=== PATIENT | female | born 1985 | race Caucasian/White ===

== ENCOUNTER 2019-01-15 20:31 | Observation (INO) ==
--- NOTE | 2019-01-15 20:37 | Emergency Department Note ---
Disposition Clinical Impression: Altered mental status Qualifiers: Altered mental status type: unspecified Qualified Code(s): R41.82 - Altered mental status, unspecified Disposition: Admitted As Inpatient Condition: Fair Time of Disposition: 03:14 General Adult HPI - General Stated complaint: stroke problems Time Seen by Provider: 01/15/19 20:33 Source: patient, family, EMS Mode of arrival: EMS Limitations: altered mental status Nursing Notes Reviewed: Yes Vital Signs Reviewed: Yes - History of Present Illness HPI Narrative: 33-year-old female with past medical history of being diagnosed with a "hole in her heart" and having strokelike symptoms approximately one month ago seen at this facility. Patient states she has had right-sided abdominal pain for the last day and a half. She is somewhat somnolent and difficult to arouse but will answer some questions. Family at bedside states that she smoked some marijuana around 1630 tonight, had some dinner around 1800, and then slumped over on the couch around 1830. Family also states that patient was up moving furniture yesterday after being told that she should be taking it easy after her last hos pital admission, and the patient has been more "grumpy" over the last 2 days. Patient is laying on the stretcher, rolling her head back and forth and twitching her feet, she opens her eyes, but will close up very quickly if you look at her. Patient's arm was lifted above her and dropped and she carefully laid it down on top of herself. - Related Data Home Medications Medication Instructions Recorded Confirmed Ranitidine HCl [Acid Extrusion Die Coordinator] 150 mg PO DAILY 12/14/18 12/14/18 Triamterene/HCTZ 37.5/25mg 1 each PO DAILY 12/14/18 12/14/18 [Dyazide] Previous Rx's Medication Instructions Recorded Aspirin 81 mg PO DAILY #30 tab.chew 12/15/18 Cyanocobalamin (B-12) [Vitamin B12] 1,000 mcg PO DAILY #30 tablet 12/15/18 Allergies Allergy/AdvReac Type Severity Reaction Status Date / Time No Known Allergies Allergy Verified 12/14/18 12:02 Limitations: ROS unobtainable due to patients medical condition Past Medical History - Past Medical History Medical history: Reports: hypertension Surgical history: Reports: other Psychiatric history: Reports: no psych history 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 Will open eyes. Will perform some tasks. Head: atraumatic, normocephalic. ENT: No conjunctival injection, no scleral icterus. Neuro: Pt not cooperative enough to perform exam. Pulm: Lungs CTAB A/P. No wheezes, rales, ronchi. Cardio: Tachycardic. Abd: Soft, non-distended. Normoactive bowel sounds. Pt moans when right side of abdomen is palpated. Extremities: Radial pulses 2+ rebeka, dorsalis pedis/posterior tibialis 2+ rebeka. No LE edema. No cyanosis, clubbing. Skin: warm, dry, intact. No rashes. Psych: Unable to assess. Course Course Narrative: Ddx includes but is not limited to: conversion disorder, hypoglycemia, stroke, overdose, polysubstance abuse Workup will include: CBC, BMP, troponin, CXR, Head CT, EKG - Reevaluation(s) Reevaluation #1: Spoke with hospitalist, Dr. Rojas, who is requesting CT of Abd/Pelvis to investigate RUQ pain. Will order. Pt remains at same level of alertness as when she arrived. Can answer questions, but is minimally responsive. Time: 02:07 Vital Signs Temperature 98.3 F 01/15/19 20:35 Pulse Rate 102 01/15/19 20:35 Respiratory Rate 16 01/15/19 20:35 Blood Pressure 156/95 01/15/19 20:35 O2 Sat by Pulse Oximetry 100 01/15/19 20:35 Temperature 98.3 F 01/15/19 20:35 Pulse Rate 71 01/16/19 02:06 Respiratory Rate 16 01/16/19 02:06 Blood Pressure 114/72 01/16/19 02:06 O2 Sat by Pulse Oximetry 100 01/16/19 02:06 Oxygen Delivery Oxygen Delivery Room Air Medical Decision Making - MDM Narrative Medical decision making narrative: Patient was observed in the emergency department for a period of 4 hours. During this time she remained stable. Patient's mental status did not improve, she was still minimally responsive but able to answer questions with repeated stimulus. Patient was discussed with Dr. Rojas requested an Abd/Pelvis CT and while waiting for this, Dr. Vera saw her at the bedside and said to admit her. Pt was taken to CT scan on her way to the floor. Lab work was unrevealing as to cause of her AMS. UDS was positive for methamphetamine and THC. Head CT was negative. CXR was negative. - Medical Records Medical records reviewed: Yes I reviewed the patient's medical records. - Lab Data Lab results reviewed: Yes I reviewed the patient's lab results. Result diagrams: 01/15/19 21:19 01/16/19 00:08 Lab Results 01/15/19 01/15/19 01/15/19 Range/Units 20:32 20:32 20:41 WBC (4.3-11.1) K/mcL RBC (3.82-4.97) M/mcL Hgb (11.5-15.4) g/dL Hct (35.3-44.9) % MCV (83.0-100.0) fL MCH (28.0-33.3) pg MCHC (31.6-35.5) g/dL RDW (11.5-14.5) % Plt Count (140-400) K/mcL MPV (9.4-12.4) fL Sodium (136-145) mEq/L Potassium (3.5-5.1) mEq/L Chloride (98-107) mEq/L Carbon Dioxide (23-29) mEq/L BUN (6-20) mg/dL Creatinine (0.60-1.20) mg/dL Est GFR ( Amer) (> 60) Est GFR (Non-Af Amer) (> 60) BUN/Creatinine Ratio (6-26) Glucose (70-105) mg/dL Calculated Osmolality (280-300) Calcium (8.6-10.3) mg/dL Total Bilirubin (0.3-1.0) mg/dL Direct Bilirubin (0.0-0.2) mg/dL Indirect Bilirubin (0.0-1.2) mg/dL AST (13-39) Units/L ALT (7-52) Units/L Alkaline Phosphatase (34-104) Units/L Ammonia (16-53) mcmol/L Troponin I (< 0.04) ng/mL Serum Total Protein (6.4-8.9) g/dL Albumin (3.5-5.7) g/dL Globulin (2.4-3.5) g/dL Albumin/Globulin Ratio (1.1-2.2) Lipase (11-82) Units/L Urine Color Dark Yellow (Yellow) Urine Clarity Hazy A (Clear) Urine pH 5.5 (5.0-8.0) pH Units Ur Specific [place] > 1.030 H (1.010-1.025) Urine Protein Trace (Neg-Trace) mg/dL Urine Glucose (UA) Normal (Normal) mg/dL Urine Ketones Negative (Negative) mg/dL Urine Blood Negative (Negative) Urine Nitrite Negative (Negative) Urine Bilirubin Negative (Negative) Urine Urobilinogen Normal (Normal) mg/dL Ur Leukocyte Esterase Negative (Negative) Ur Culture Indicated? NO (NO) Urine Test Negative (Negative) Salicylates (15.0-30.0) mg/dL Urine Opiates Screen Negative (Wcrwwy=206) ng/mL Acetaminophen (10-20) mcg/mL Ur Barbiturates Screen Negative (Minjtt=918) ng/mL Ur Phencyclidine Scrn Negative (Cutoff=25) ng/mL Ur Amphetamines Screen Positive H (Lvrinp=1693) ng/mL U Benzodiazepines Scrn Negative (Uqhekw=331) ng/mL Urine Cocaine Screen Negative (Cutoff= 300) ng/mL U Marijuana (THC) Screen Positive H (Cutoff = 50) ng/mL Ur Drug Screen Interp See Below Ethyl Alcohol (Less than 10) mg/dL 01/15/19 01/15/19 01/15/19 Range/Units 21:19 21: 21: WBC 5.8 (4.3-11.1) K/mcL RBC 4.33 (3.82-4.97) M/mcL Hgb 12.1 (11.5-15.4) g/dL Hct 37.7 (35.3-44.9) % MCV 87.1 (83.0-100.0) fL MCH 27.9 L (28.0-33.3) pg MCHC 32.1 (31.6-35.5) g/dL RDW 14.6 H (11.5-14.5) % Plt Count 252 (140-400) K/mcL MPV 9.1 L (9.4-12.4) fL Sodium (136-145) mEq/L Potassium (3.5-5.1) mEq/L Chloride (98-107) mEq/L Carbon Dioxide (23-29) mEq/L BUN (6-20) mg/dL Creatinine (0.60-1.20) mg/dL Est GFR ( Amer) (> 60) Est GFR (Non-Af Amer) (> 60) BUN/Creatinine Ratio (6-26) Glucose (70-105) mg/dL Calculated Osmolality (280-300) Calcium (8.6-10.3) mg/dL Total Bilirubin (0.3-1.0) mg/dL Direct Bilirubin (0.0-0.2) mg/dL Indirect Bilirubin (0.0-1.2) mg/dL AST (13-39) Units/L ALT (7-52) Units/L Alkaline Phosphatase (34-104) Units/L Ammonia 46 (16-53) mcmol/L Troponin I (< 0.04) ng/mL Serum Total Protein (6.4-8.9) g/dL Albumin (3.5-5.7) g/dL Globulin (2.4-3.5) g/dL Albumin/Globulin Ratio (1.1-2.2) Lipase (11-82) Units/L Urine Color (Yellow) Urine Clarity (Clear) Urine pH (5.0-8.0) pH Units Ur Specific [place] (1.010-1.025) Urine Protein (Neg-Trace) mg/dL Urine Glucose (UA) (Normal) mg/dL Urine Ketones (Negative) mg/dL Urine Blood (Negative) Urine Nitrite (Negative) Urine Bilirubin (Negative) Urine Urobilinogen (Normal) mg/dL Ur Leukocyte Esterase (Negative) Ur Culture Indicated? (NO) Urine Test (Negative) Salicylates < 2.5 L (15.0-30.0) mg/dL Urine Opiates Screen (Faupfi=405) ng/mL Acetaminophen 21 H (10-20) mcg/mL Ur Barbiturates Screen (Lbfgsy=184) ng/mL Ur Phencyclidine Scrn (Cutoff=25) ng/mL Ur Amphetamines Screen (Enchne=4656) ng/mL U Benzodiazepines Scrn (Mgvvim=426) ng/mL Urine Cocaine Screen (Cutoff= 300) ng/mL U Marijuana (THC) Screen (Cutoff = 50) ng/mL Ur Drug Screen Interp Ethyl Alcohol < 10 (Less than 10) mg/dL 01/15/19 01/16/19 01/16/19 Range/Units 21:19 00:08 00:08 WBC (4.3-11.1) K/mcL RBC (3.82-4.97) M/mcL Hgb (11.5-15.4) g/dL Hct (35.3-44.9) % MCV (83.0-100.0) fL MCH (28.0-33.3) pg MCHC (31.6-35.5) g/dL RDW (11.5-14.5) % Plt Count (140-400) K/mcL MPV (9.4-12.4) fL Sodium 138 (136-145) mEq/L Potassium 3.4 L (3.5-5.1) mEq/L Chloride 104 (98-107) mEq/L Carbon Dioxide 25 (23-29) mEq/L BUN 20 (6-20) mg/dL Creatinine 0.66 (0.60-1.20) mg/dL Est GFR ( Amer) > 60 (> 60) Est GFR (Non-Af Amer) > 60 (> 60) BUN/Creatinine Ratio 30 H (6-26) Glucose 96 (70-105) mg/dL Calculated Osmolality 288 (280-300) Calcium 9.5 (8.6-10.3) mg/dL Total Bilirubin 0.9 (0.3-1.0) mg/dL Direct Bilirubin 0.2 (0.0-0.2) mg/dL Indirect Bilirubin 0.7 (0.0-1.2) mg/dL AST 23 (13-39) Units/L ALT 12 (7-52) Units/L Alkaline Phosphatase 72 (34-104) Units/L Ammonia (16-53) mcmol/L Troponin I < 0.03 (< 0.04) ng/mL Serum Total Protein 7.2 (6.4-8.9) g/dL Albumin 4.5 (3.5-5.7) g/dL Globulin 2.7 (2.4-3.5) g/dL Albumin/Globulin Ratio 1.7 (1.1-2.2) Lipase 108 H (11-82) Units/L Urine Color (Yellow) Urine Clarity (Clear) Urine pH (5.0-8.0) pH Units Ur Specific [place] (1.010-1.025) Urine Protein (Neg-Trace) mg/dL Urine Glucose (UA) (Normal) mg/dL Urine Ketones (Negative) mg/dL Urine Blood (Negative) Urine Nitrite (Negative) Urine Bilirubin (Negative) Urine Urobilinogen (Normal) mg/dL Ur Leukocyte Esterase (Negative) Ur Culture Indicated? (NO) Urine Test (Negative) Salicylates (15.0-30.0) mg/dL Urine Opiates Screen (Obhapp=892) ng/mL Acetaminophen < 10 L (10-20) mcg/mL Ur Barbiturates Screen (Aaueva=422) ng/mL Ur Phencyclidine Scrn (Cutoff=25) ng/mL Ur Amphetamines Screen (Grwmog=4031) ng/mL U Benzodiazepines Scrn (Stbphi=619) ng/mL Urine Cocaine Screen (Cutoff= 300) ng/mL U Marijuana (THC) Screen (Cutoff = 50) ng/mL Ur Drug Screen Interp Ethyl Alcohol (Less than 10) mg/dL - Radiology Data Radiology results reviewed: Yes I reviewed the patient's radiology results. Chest X-Ray 01/15/19 20:34 IMPRESSION: No acute cardiopulmonary disease. D/ / Home Will MD / Home Will MD Interpreting Provider: Home Will MD Head CT 01/15/19 20:34 IMPRESSION: No acute intracranial abnormality. D/ / Keshawn Siegel / Keshawn Siegel Interpreting Provider: Keshawn Siegel - EKG Data EKG #1 EKG attestation: Yes I reviewed and interpreted this EKG. EKG results narrative: HR 103, rhythm sinus tachycardia, axis normal. [place] 134, QRS 97, QTc 473. No clinically significant ST elevation or depression. LVH. No brugada. No WPW.
--- NOTE | 2019-01-15 20:40 | Emergency Department Note ---
Disposition Clinical Impression: Right upper quadrant abdominal pain Altered mental status Qualifiers: Altered mental status type: unspecified Qualified Code(s): R41.82 - Altered mental status, unspecified Disposition: Admitted As Inpatient Condition: Fair General Adult HPI - General Stated complaint: stroke problems Time Seen by Provider: 01/15/19 20:33 Nursing Notes Reviewed: Yes Vital Signs Reviewed: Yes - Related Data Home Medications Medication Instructions Recorded Confirmed Ranitidine HCl [Acid Relief Cook] 150 mg PO DAILY 12/14/18 12/14/18 Triamterene/HCTZ 37.5/25mg 1 each PO DAILY 12/14/18 12/14/18 [Dyazide] Previous Rx's Medication Instructions Recorded Aspirin 81 mg PO DAILY #30 tab.chew 12/15/18 Cyanocobalamin (B-12) [Vitamin B12] 1,000 mcg PO DAILY #30 tablet 12/15/18 Allergies Allergy/AdvReac Type Severity Reaction Status Date / Time No Known Allergies Allergy Verified 12/14/18 12:02 Past Medical History - Past Medical History Medical history: Reports: hypertension Surgical history: Reports: other Psychiatric history: Reports: no psych history 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 - Social History Smoking Status: Never smoker Smokeless Tobacco Status: No Alcohol use: Reports: none Drug use: Reports: marijuana Course Vital Signs Temperature 98.3 F 01/15/19 20:35 Pulse Rate 102 01/15/19 20:35 Respiratory Rate 16 01/15/19 20:35 Blood Pressure 156/95 01/15/19 20:35 O2 Sat by Pulse Oximetry 100 01/15/19 20:35 Temperature 98.3 F 01/15/19 20:35 Pulse Rate 71 01/16/19 02:06 Respiratory Rate 16 01/16/19 02:06 Blood Pressure 114/72 01/16/19 02:06 O2 Sat by Pulse Oximetry 100 01/16/19 02:06 Oxygen Delivery Oxygen Delivery Room Air Medical Decision Making - Medical Records Medical records reviewed: Yes I reviewed the patient's medical records. - Lab Data Lab results reviewed: Yes I reviewed the patient's lab results. Result diagrams: 01/15/19 21:19 01/16/19 00:08 Lab Results 01/15/19 01/15/19 01/15/19 Range/Units 20:32 20:32 20:41 WBC (4.3-11.1) K/mcL RBC (3.82-4.97) M/mcL Hgb (11.5-15.4) g/dL Hct (35.3-44.9) % MCV (83.0-100.0) fL MCH (28.0-33.3) pg MCHC (31.6-35.5) g/dL RDW (11.5-14.5) % Plt Count (140-400) K/mcL MPV (9.4-12.4) fL Sodium (136-145) mEq/L Potassium (3.5-5.1) mEq/L Chloride (98-107) mEq/L Carbon Dioxide (23-29) mEq/L BUN (6-20) mg/dL Creatinine (0.60-1.20) mg/dL Est GFR ( Amer) (> 60) Est GFR (Non-Af Amer) (> 60) BUN/Creatinine Ratio (6-26) Glucose (70-105) mg/dL Calculated Osmolality (280-300) Calcium (8.6-10.3) mg/dL Total Bilirubin (0.3-1.0) mg/dL Direct Bilirubin (0.0-0.2) mg/dL Indirect Bilirubin (0.0-1.2) mg/dL AST (13-39) Units/L ALT (7-52) Units/L Alkaline Phosphatase (34-104) Units/L Ammonia (16-53) mcmol/L Troponin I (< 0.04) ng/mL Serum Total Protein (6.4-8.9) g/dL Albumin (3.5-5.7) g/dL Globulin (2.4-3.5) g/dL Albumin/Globulin Ratio (1.1-2.2) Lipase (11-82) Units/L Urine Color Dark Yellow (Yellow) Urine Clarity Hazy A (Clear) Urine pH 5.5 (5.0-8.0) pH Units Ur Specific [place] > 1.030 H (1.010-1.025) Urine Protein Trace (Neg-Trace) mg/dL Urine Glucose (UA) Normal (Normal) mg/dL Urine Ketones Negative (Negative) mg/dL Urine Blood Negative (Negative) Urine Nitrite Negative (Negative) Urine Bilirubin Negative (Negative) Urine Urobilinogen Normal (Normal) mg/dL Ur Leukocyte Esterase Negative (Negative) Ur Culture Indicated? NO (NO) Urine Test Negative (Negative) Salicylates (15.0-30.0) mg/dL Urine Opiates Screen Negative (Vczncg=796) ng/mL Acetaminophen (10-20) mcg/mL Ur Barbiturates Screen Negative (Ybcqqo=806) ng/mL Ur Phencyclidine Scrn Negative (Cutoff=25) ng/mL Ur Amphetamines Screen Positive H (Egtddo=7318) ng/mL U Benzodiazepines Scrn Negative (Npzdun=054) ng/mL Urine Cocaine Screen Negative (Cutoff= 300) ng/mL U Marijuana (THC) Screen Positive H (Cutoff = 50) ng/mL Ur Drug Screen Interp See Below Ethyl Alcohol (Less than 10) mg/dL 01/15/19 01/15/19 01/15/19 Range/Units 21:19 21:19 21: WBC 5.8 (4.3-11.1) K/mcL RBC 4.33 (3.82-4.97) M/mcL Hgb 12.1 (11.5-15.4) g/dL Hct 37.7 (35.3-44.9) % MCV 87.1 (83.0-100.0) fL MCH 27.9 L (28.0-33.3) pg MCHC 32.1 (31.6-35.5) g/dL RDW 14.6 H (11.5-14.5) % Plt Count 252 (140-400) K/mcL MPV 9.1 L (9.4-12.4) fL Sodium (136-145) mEq/L Potassium (3.5-5.1) mEq/L Chloride (98-107) mEq/L Carbon Dioxide (23-29) mEq/L BUN (6-20) mg/dL Creatinine (0.60-1.20) mg/dL Est GFR ( Amer) (> 60) Est GFR (Non-Af Amer) (> 60) BUN/Creatinine Ratio (6-26) Glucose (70-105) mg/dL Calculated Osmolality (280-300) Calcium (8.6-10.3) mg/dL Total Bilirubin (0.3-1.0) mg/dL Direct Bilirubin (0.0-0.2) mg/dL Indirect Bilirubin (0.0-1.2) mg/dL AST (13-39) Units/L ALT (7-52) Units/L Alkaline Phosphatase (34-104) Units/L Ammonia 46 (16-53) mcmol/L Troponin I (< 0.04) ng/mL Serum Total Protein (6.4-8.9) g/dL Albumin (3.5-5.7) g/dL Globulin (2.4-3.5) g/dL Albumin/Globulin Ratio (1.1-2.2) Lipase (11-82) Units/L Urine Color (Yellow) Urine Clarity (Clear) Urine pH (5.0-8.0) pH Units Ur Specific [place] (1.010-1.025) Urine Protein (Neg-Trace) mg/dL Urine Glucose (UA) (Normal) mg/dL Urine Ketones (Negative) mg/dL Urine Blood (Negative) Urine Nitrite (Negative) Urine Bilirubin (Negative) Urine Urobilinogen (Normal) mg/dL Ur Leukocyte Esterase (Negative) Ur Culture Indicated? (NO) Urine Test (Negative) Salicylates < 2.5 L (15.0-30.0) mg/dL Urine Opiates Screen (Xdxffu=619) ng/mL Acetaminophen 21 H (10-20) mcg/mL Ur Barbiturates Screen (Qyoxev=834) ng/mL Ur Phencyclidine Scrn (Cutoff=25) ng/mL Ur Amphetamines Screen (Qkewbb=3768) ng/mL U Benzodiazepines Scrn (Tzukkb=281) ng/mL Urine Cocaine Screen (Cutoff= 300) ng/mL U Marijuana (THC) Screen (Cutoff = 50) ng/mL Ur Drug Screen Interp Ethyl Alcohol < 10 (Less than 10) mg/dL 01/15/19 01/16/19 01/16/19 Range/Units 21:19 00:08 00:08 WBC (4.3-11.1) K/mcL RBC (3.82-4.97) M/mcL Hgb (11.5-15.4) g/dL Hct (35.3-44.9) % MCV (83.0-100.0) fL MCH (28.0-33.3) pg MCHC (31.6-35.5) g/dL RDW (11.5-14.5) % Plt Count (140-400) K/mcL MPV (9.4-12.4) fL Sodium 138 (136-145) mEq/L Potassium 3.4 L (3.5-5.1) mEq/L Chloride 104 (98-107) mEq/L Carbon Dioxide 25 (23-29) mEq/L BUN 20 (6-20) mg/dL Creatinine 0.66 (0.60-1.20) mg/dL Est GFR ( Amer) > 60 (> 60) Est GFR (Non-Af Amer) > 60 (> 60) BUN/Creatinine Ratio 30 H (6-26) Glucose 96 (70-105) mg/dL Calculated Osmolality 288 (280-300) Calcium 9.5 (8.6-10.3) mg/dL Total Bilirubin 0.9 (0.3-1.0) mg/dL Direct Bilirubin 0.2 (0.0-0.2) mg/dL Indirect Bilirubin 0.7 (0.0-1.2) mg/dL AST 23 (13-39) Units/L ALT 12 (7-52) Units/L Alkaline Phosphatase 72 (34-104) Units/L Ammonia (16-53) mcmol/L Troponin I < 0.03 (< 0.04) ng/mL Serum Total Protein 7.2 (6.4-8.9) g/dL Albumin 4.5 (3.5-5.7) g/dL Globulin 2.7 (2.4-3.5) g/dL Albumin/Globulin Ratio 1.7 (1.1-2.2) Lipase 108 H (11-82) Units/L Urine Color (Yellow) Urine Clarity (Clear) Urine pH (5.0-8.0) pH Units Ur Specific [place] (1.010-1.025) Urine Protein (Neg-Trace) mg/dL Urine Glucose (UA) (Normal) mg/dL Urine Ketones (Negative) mg/dL Urine Blood (Negative) Urine Nitrite (Negative) Urine Bilirubin (Negative) Urine Urobilinogen (Normal) mg/dL Ur Leukocyte Esterase (Negative) Ur Culture Indicated? (NO) Urine Test (Negative) Salicylates (15.0-30.0) mg/dL Urine Opiates Screen (Oazfpw=118) ng/mL Acetaminophen < 10 L (10-20) mcg/mL Ur Barbiturates Screen (Nrziej=409) ng/mL Ur Phencyclidine Scrn (Cutoff=25) ng/mL Ur Amphetamines Screen (Wsgspp=9432) ng/mL U Benzodiazepines Scrn (Iagrsn=110) ng/mL Urine Cocaine Screen (Cutoff= 300) ng/mL U Marijuana (THC) Screen (Cutoff = 50) ng/mL Ur Drug Screen Interp Ethyl Alcohol (Less than 10) mg/dL - Radiology Data Radiology results reviewed: Yes I reviewed the patient's radiology results. Chest X-Ray 01/15/19 20:34 IMPRESSION: No acute cardiopulmonary disease. D/ / Home Will MD / Home Will MD Interpreting Provider: Home Will MD Head CT 01/15/19 20:34 IMPRESSION: No acute intracranial abnormality. D/ / Keshawn Siegel / Keshawn Siegel Interpreting Provider: Keshawn Siegel - EKG Data EKG #1 EKG attestation: Yes I reviewed and interpreted this EKG. EKG results narrative: EKG shows a sinus tachycardia with ventricular rate of 103. Probable left atrial enlargement. LVH. No significant ST segment elevation or depression. No ectopy. Attestation Statement - Attestation Attestation: I, Franklin Hale MD, personally evaluated this patient and discussed their management with the resident physician. I reviewed the resident's note and agree with the documented findings, medical decision making, and plan of care. 33-year-old female presents to the emergency department by EMS for complaint of right upper quadrant abdominal pain as well as altered mental status. The abdominal pain started yesterday. Boyfriend reports that since yesterday she has been "grumpy" and irritable. He states that she recently had a stroke and was found to have a hole in her heart at [facility]. She is not supposed to do any strenuous activity but he states that she has been moving furniture around and very active and hyper. She does have a history of drug abuse. She admits to using marijuana today. Boyfriend unsure if she has used anything else. He states that about 6 PM today he gave her some Tylenol because she complained of this right side pain. About a half hour later he reports that she was sitting on the couch and she just slumped over and became less responsive. On arrival here the patient responds to verbal stimuli. She does answer some questions. She is holding her right upper quadrant and complains of pain in this area. She seems to be unresponsive at times however while lying on the EMS stretcher and they were moving her over to the bed she would open her eyes widely and look around and then close her eyes quickly. On examination patient is a well-developed obese female in no acute distress. She is altered but responds to verbal stimuli. No cyanosis or diaphoresis. Breath sounds are clear and equal bilaterally. Heart regular with a mild tachycardia. Abdomen soft with normal bowel sounds. Right upper quadrant tenderness on palpation. EKG shows a sinus tachycardia with ventricular rate of 103. Probable left atrial enlargement. LVH. No significant ST segment elevation or depression. No ectopy. Chest x-ray negative. Head CT negative. Labs reviewed. Patient observed here in the emergency department for several hours and remains altered. The hospitalist, Dr. Rojas, was consulted and accepted admission of the patient. I reviewed the residents documentation and agree with the residents assessment and plan of care. I have personally had face to face time with the patient. I personally supervised and was present for the john/critical portions of the following procedures completed by the resident: EKG interpretation.
[2019-01-15 21:10] LABS: Amphetamine Screen,Urine Positive ng/mL (Cutoff=1000); Barbiturate Screen,Urine Negative ng/mL (Cutoff=200); Benzodiazepines Screen,Urine Negative ng/mL (Cutoff=200); Cannabinoid Screen,Urine Positive ng/mL (Cutoff = 50); Cocaine Screen,Urine Negative ng/mL (Cutoff= 300); Opiate Screen,Urine Negative ng/mL (Cutoff=300); Phencyclidine Screen,Urine Negative ng/mL (Cutoff=25)
[2019-01-15 21:35] LABS: Hematocrit 37.7 % (35.3-44.9); Hemoglobin 12.1 g/dL (11.5-15.4); Mean Corpuscular HGB Conc 32.1 g/dL (31.6-35.5); Mean Corpuscular Hemoglobin 27.9 pg (28.0-33.3); Mean Corpuscular Volume 87.1 fL (83.0-100.0); Mean Platelet Volume 9.1 fL (9.4-12.4); Platelet Count 252 K/mcL (140-400); Red Blood Count 4.33 M/mcL (3.82-4.97); Red Cell Distribution Width 14.6 % (11.5-14.5)
[2019-01-15 21:53] LABS: Acetaminophen 21 mcg/mL (10-20); Ethanol < 10 mg/dL (Less than 10); Salicylate < 2.5 mg/dL (15.0-30.0)
[2019-01-15 21:54] LABS: Albumin 4.5 g/dL (3.5-5.7); Albumin/Globulin Ratio 1.7 (1.1-2.2); Bilirubin,Direct 0.2 mg/dL (0.0-0.2); Bilirubin,Indirect 0.7 mg/dL (0.0-1.2); Bilirubin,Total 0.9 mg/dL (0.3-1.0); Globulin 2.7 g/dL (2.4-3.5); Total Protein 7.2 g/dL (6.4-8.9)
[2019-01-15 22:37] LABS: Bilirubin,Urine Negative (Negative); Blood,Urine Negative (Negative); Color,Urine Dark Yellow (Yellow); Glucose,Urine (UA) Normal (Normal); Ketones,Urine Negative (Negative); Leukocyte Esterase,Urine Negative (Negative); Nitrite,Urine Negative (Negative); PH,Urine 5.5 pH Units (5.0-8.0); Protein,Urine Trace mg/dL (Neg-Trace); Specific Gravity,Urine > 1.030 (1.010-1.025); Urobilinogen,Urine Normal (Normal)
[2019-01-15 22:40] LABS: Clarity,Urine Hazy (Clear)
[2019-01-16 01:37] LABS: BUN/Creatinine Ratio 30 (6-26); Blood Urea Nitrogen 20 mg/dL (6-20); Calcium 9.5 mg/dL (8.6-10.3); Carbon Dioxide 25 mEq/L (23-29); Chloride 104 mEq/L (98-107); Glucose 96 mg/dL (70-105); Osmolality,Calculated 288 (280-300); Potassium 3.4 mEq/L (3.5-5.1); Sodium 138 mEq/L (136-145); Troponin I < 0.03 ng/mL (< 0.04); eGFR For Non-African Americans > 60 (> 60)
[2019-01-16] MEDS ORDERED: Isovue-370 500 ML BOTTLE IVP ONE (02:07)
[2019-01-16] MEDS ORDERED: Naloxone 0.4 MG/ML INJ IVP PRN (02:43)
[2019-01-16] MEDS ORDERED: Ondansetron 4 MG/2 ML VIAL IVP PRN (02:43)
--- NOTE | 2019-01-16 03:00 | Internal Med History&Physical ---
Date of Encounter: 01/16/19 Time of Encounter: 02:30 Internal Medicine - H&P: HPI Chief complaint: abdominal pain; overdose Admitted From: Emergency Dept Plans for Post Hospital Care: Home History of present illness: Ms. Gallo is a 33 year old female who presents to the ER by squad with complaints of abdominal pain. However, she was sleepy and minimally responsive upon arrival by squ. Reportedly, family members stated that she slumped over at home earlier this evening after dinner. She had been complaining of a bdominal pain for quite some time. Reportedly, according to her boyfriend, patient had been using marijuana regularly. Her last use of marijuana is unknown. There was concern that she might have ingested some other drug unintentionally. She underwent imaging of her head which was negative. Routine labs were unremarkable but urine toxicity screen was positive for amphetamines and marijuana. Reportedly, her boyfriend did give her 4 Tylenol pills earlier today for concerns of abdominal pain. She was observed in the ER for several hours and remained somnolent. She therefore is admitted to hospitalist service for observation and further monitoring. Upon my assessment of the patient in the ER, she is somnolent but arousable to verbal command. When I asked her why she came to ER, she claimed she was having abdominal pain. She would then drift off to sleep. I continued to ask her, wa ke her up, and questioned her. She repeatedly answered "abdominal pain" and would then drift off to sleep. No further history could be obtained from patient. Of note, during the exam, I noted her pupils to be about 3-4 mm and reactive. Furthermore, she had no sign of abdominal pain on my exam. All history was obtained from my discussions with the ER staff, old records, nursing report, and very limited history obtained from patient as detailed above. No family members were present at the time of my assessment. Past Med Surg Social Fam HX - Past Medical History Source: old records reviewed Medical history: CVA, hypertension Psychiatric history: no psych history - Past Surgical History Surgical History: other Additional surgical history: tubal ligation, upper gi - Social History Smoking Status: Never smoker Smokeless Tobacco Status: No Alcohol use: none Drug use: marijuana - Family History Mother Adopted: No Family Member Ethnicity: Non- Living Status: Still Living Hx Family Cardiac Disorders: Yes (CHF, High BP) Hx Family Cancer: Yes (Cervical) Hx Family Neurologic Disorders: Yes (CVA) Mother Maternal Hx Family Cardiac Disorders: Yes (CABG) Internal Medicine - H&P: Meds Ranitidine HCl [Acid Plant Facilities Technician] 150 mg PO DAILY 12/14/18 [History] Triamterene/HCTZ 37.5/25mg [Dyazide] 1 each PO DAILY 12/14/18 [History] Aspirin 81 mg PO DAILY #30 tab.chew 12/15/18 [Rx] Cyanocobalamin (B-12) [Vitamin B12] 1,000 mcg PO DAILY #30 tablet 12/15/18 [Rx] Allergy/AdvReac Type Severity Reaction Status Date / Time No Known Allergies Allergy Verified 12/14/18 12:02 ROS unobtainable: due to mental status - Constitutional Vitals: Temp Pulse Resp BP Pulse Ox 98.3 F 71 16 114/72 100 01/15/19 20:35 01/16/19 02:06 01/16/19 02:06 01/16/19 02:06 01/16/19 02:06 General appearance: Present: A&O X 0 Exam: somnolent but arousable easily to verbal command; moves all four extremities; drifts right back to sleep; protecting airway - Head Head exam: Present: atraumatic, normal inspection - Eye Eye exam: Present: PERRL. Absent: scleral icterus - ENT ENT exam: Present: mucous membranes dry, normal exam, normal oropharynx - Neck Neck exam general surgery: Present: full ROM, supple, trachea midline. Absent: lymphadenopathy, tenderness, nuchal rigidity, thyromegaly - Respiratory Respiratory exam: Present: CTAB. Absent: chest wall tenderness, rales, respiratory distress, rhonchi, wheezes - Cardiovascular Cardiovascular exam: Present: distant heart sounds, RRR, +S1, +S2. Absent: diastolic murmur, systolic murmur - GI/Abdominal GI/Abdominal exam: Present: normal bowel sounds, soft. Absent: guarding, hepatomegaly, mass, rebound, splenomegaly, tenderness - Extremities Exam Extremities exam: Present: full ROM, warm, radial pulses palpable and s ymmetrical. Absent: calf tenderness, pedal edema, tenderness - Neurological Exam Neurological exam: Present: altered Additional comments: somnolent, arousable; moves all 4 extremities purposely; unable to perform full assessment due to somnolence - Skin Skin exam: Present: dry, intact, warm Internal Med - H&P Results - Labs CBC & Chem 7: 01/15/19 21:19 01/16/19 00:08 Labs: Short CBC 01/15/19 Range/Units 21:19 WBC 5.8 (4.3-11.1) K/mcL Hgb 12.1 (11.5-15.4) g/dL Hct 37.7 (35.3-44.9) % Plt Count 252 (140-400) K/mcL BMP 01/16/19 00:08 Sodium 138 Potassium 3.4 L Chloride 104 Carbon Dioxide 25 BUN 20 Creatinine 0.66 Glucose 96 Calcium 9.5 Cardiac Enzymes 01/16/19 Range/Units 00:08 Troponin I < 0.03 (< 0.04) ng/mL Liver Function 01/15/19 Range/Units 21:19 Total Bilirubin 0.9 (0.3-1.0) mg/dL Direct Bilirubin 0.2 (0.0-0.2) mg/dL AST 23 (13-39) Units/L ALT 12 (7-52) Units/L Alkaline Phosphatase 72 (34-104) Units/L Albumin 4.5 (3.5-5.7) g/dL Urine 01/15/19 Range/Units 20:32 Urine Color Dark Yellow (Yellow) Urine Clarity Hazy A (Clear) Urine pH 5.5 (5.0-8.0) pH Units Ur Specific Billingsley > 1.030 H (1.010-1.025) Urine Protein Trace (Neg-Trace) mg/dL Urine Glucose (UA) Normal (Normal) mg/dL - Impressions ITS Impressions Chest X-Ray 01/15/19 20:34 IMPRESSION: No acute cardiopulmonary disease. D/ / Home Will MD / Home Will MD Interpreting Provider: Home Will MD Head CT 01/15/19 20:34 IMPRESSION: No acute intracranial abnormality. D/ / Keshawn Siegel / Keshawn Siegel Interpreting Provider: Keshawn Siegel - Assessment and Plan (1) Polysubstance abuse Current Visit: Yes Status: Acute Assessment and plan: 1. Will monitor on telemetry and pulse oximetry. 2. Will continue neurochecks and monitor clinically. 3. Somnolence likely due to polysubstance abuse. (2) Altered mental status Current Visit: Yes Status: Acute Assessment and plan: 1. Likley due to polysubstance abuse. 2. Monitor neurologic status frequently. 3. Avoid sedating medications. 4. If no further improvement, consider proceeding with MRI brain. Patient had similar presentation last month. MRI and neurology consultation were both negative. Qualifiers: Altered mental status type: unspecified Qualified Code(s): R41.82 - Altered mental status, unspecified (3) Right upper quadrant abdominal pain Current Visit: Yes Status: Suspected Assessment and plan: 1. Abdominal exam is benign on my exam. 2. Will trend her labs and monitor clinically. 3. Follow up on abdominal CT from ER. (4) DVT prophylaxis Current Visit: Yes Status: Acute Assessment and plan: 1. Heparin SQ.
[2019-01-16] MEDS: 0.9 % Sodium Chloride w KCl 20 MEQ/1,000 ML MLS IVC SCH ×2 (04:37→15:37)
[2019-01-16] MEDS: Pantoprazole 40 MG VIAL IVP SCH ×2 (04:49→18:42)
[2019-01-16 05:26] LABS: Basophils % 1.1 %; Eosinophils # 0.1 K/mcL (0.0-0.6); Eosinophils % 3.2 %; Hematocrit 42.3 % (35.3-44.9); Hemoglobin 13.4 g/dL (11.5-15.4); Immature Granulocytes % 0.3 % (0-4); Lymphocytes # 1.6 K/mcL (0.6-4.6); Lymphocytes % 43.9 %; Mean Corpuscular HGB Conc 31.7 g/dL (31.6-35.5); Mean Corpuscular Volume 88.5 fL (83.0-100.0); Monocytes # 0.3 K/mcL (0.0-1.3); Monocytes % 7.8 %; Neutrophils # 1.6 K/mcL (1.6-8.9); Platelet Count 231 K/mcL (140-400); Red Blood Count 4.78 M/mcL (3.82-4.97); Red Cell Distribution Width 14.9 % (11.5-14.5); Segmented Neutrophils % 43.7 %
[2019-01-16 05:30] LABS: INR 1.1; Prothrombin Time 12.4 Seconds (9.4-12.1)
[2019-01-16 05:33] LABS: Activated Partial Thrombo Time 32.1 Seconds (26.0-36.0)
[2019-01-16 05:59] LABS: Alanine Aminotransferase 14 Units/L (7-52); Albumin 4.9 g/dL (3.5-5.7); Albumin/Globulin Ratio 1.5 (1.1-2.2); Alkaline Phosphatase 82 Units/L (34-104); Amylase 47 Units/L (29-103); Aspartate Amino Transferase 25 Units/L (13-39); BUN/Creatinine Ratio 26 (6-26); Bilirubin,Total 1.3 mg/dL (0.3-1.0); Blood Urea Nitrogen 18 mg/dL (6-20); Calcium 10.4 mg/dL (8.6-10.3); Carbon Dioxide 28 mEq/L (23-29); Chloride 102 mEq/L (98-107); Chol/HDL Ratio 4.4 (0-4.9); Cholesterol 200 mg/dL (< 200); Globulin 3.3 g/dL (2.4-3.5); Glucose 83 mg/dL (70-105); HDL Cholesterol 45 mg/dL (40-59); LDL Cholesterol,Calculated 140 mg/dL (0-99); Lipase 49 Units/L (11-82); Osmolality,Calculated 289 (280-300); Phosphorous 3.3 mg/dL (2.7-4.5); Potassium 3.3 mEq/L (3.5-5.1); Sodium 139 mEq/L (136-145); Total Protein 8.2 g/dL (6.4-8.9); Triglycerides 77 mg/dL (< 150); eGFR For Non-African Americans > 60 (> 60)
[2019-01-16 06:00] LABS: Magnesium 2.1 mg/dL (1.6-2.6)
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
[2019-01-16] MEDS ORDERED: Ketorolac 30 MG/ML VIAL IM PRN (14:16)
[2019-01-16] MEDS: Ketorolac 30 MG/ML VIAL IVP PRN (15:36)
[2019-01-17] MEDS: Ketorolac 30 MG/ML VIAL IVP PRN ×2 (00:04→10:01)
[2019-01-17] MEDS: Pantoprazole 40 MG VIAL IVP SCH ×2 (05:40→17:35)
[2019-01-17 05:59] LABS: Basophils % 0.9 %; Eosinophils # 0.1 K/mcL (0.0-0.6); Eosinophils % 3.5 %; Hemoglobin 11.3 g/dL (11.5-15.4); Immature Granulocytes % 0.3 % (0-4); Lymphocytes # 1.7 K/mcL (0.6-4.6); Lymphocytes % 48.4 %; Mean Corpuscular HGB Conc 31.4 g/dL (31.6-35.5); Mean Corpuscular Hemoglobin 28.2 pg (28.0-33.3); Mean Corpuscular Volume 89.8 fL (83.0-100.0); Mean Platelet Volume 9.5 fL (9.4-12.4); Monocytes # 0.3 K/mcL (0.0-1.3); Monocytes % 9.8 %; Neutrophils # 1.3 K/mcL (1.6-8.9); Platelet Count 179 K/mcL (140-400); Red Blood Count 4.01 M/mcL (3.82-4.97); Red Cell Distribution Width 14.6 % (11.5-14.5); Segmented Neutrophils % 37.1 %
[2019-01-17 06:02] LABS: INR 1.1; Prothrombin Time 12.4 Seconds (9.4-12.1)
[2019-01-17 06:23] LABS: Albumin 3.5 g/dL (3.5-5.7); Albumin/Globulin Ratio 1.5 (1.1-2.2); Bilirubin,Direct 0.1 mg/dL (0.0-0.2); Bilirubin,Indirect 0.5 mg/dL (0.0-1.2); Bilirubin,Total 0.6 mg/dL (0.3-1.0); Globulin 2.4 g/dL (2.4-3.5); Total Protein 5.9 g/dL (6.4-8.9)
[2019-01-17 06:54] LABS: Hepatitis B Surface Antigen Nonreactive (Nonreactive)
[2019-01-17 07:23] LABS: Hepatitis B Core IgM Nonreactive (Nonreactive)
[2019-01-17 07:24] LABS: Hepatitis A Antibody IgM Nonreactive (Nonreactive); Hepatitis C Virus Antibody Nonreactive (Nonreactive)
[2019-01-17 14:48] VITALS: BP 149/84
--- NOTE | 2019-01-17 18:43 | Discharge Summary ---
- NOTES TO OUTPATIENT PROVIDER Notes to Outpatient Provider: PCP in 5 to 7 days Orders not resulted at time of discharge: Pending orders 01/16/19 06:00 ECG 12 lead ECG [ECG] AM 0600 Date of Encounter: 01/17/19 Time of Encounter: 18:41 - Discharge Diagnosis (1) Right upper quadrant abdominal pain Priority: Secondary Status: Suspected Assessment and Plan: - Abdominal exam is benign on my exam. - Pt denies RUQ abdominal pain today. - Abdominal US showing sludge but no stones or evidence of acute cholecystitis. - CT abdomen did not show any acute findings. - LFT's wnl and hepatitis screen neg. Lipase 49 and Amylase 47. (2) Polysubstance abuse Priority: Secondary Status: Acute Assessment and Plan: Somnolence likely due to polysubstance abuse and has resolved. UDS + for amphetamine and THC. Cessation strongly advised. (3) Altered mental status Priority: Secondary Status: Acute Assessment and Plan: 1. Likely due to polysubstance abuse. Resolved - Patient had similar presentation last month. MRI and neurology consultation were both negative. Qualifiers: Altered mental status type: unspecified Qualified Code(s): R41.82 - Altered mental status, unspecified Hospital course: History of present illness: Panfilo Ortiz Ms. Gallo is a 33 year old female who presents to the ER by [facility] with complaints of abdominal pain. However, she was sleepy and minimally responsive upon arrival by [facility]. Reportedly, family members stated that she slumped over at home earlier this evening after dinner. She had been complaining of abdominal pain for quite some time. Reportedly, according to her boyfriend, patient had been using marijuana regularly. Her last use of marijuana is unknown. There was concern that she might have ingested some other drug unintentionally. She underwent imaging of her head which was negative. Routine labs were unremarkable but urine toxicity screen was positive for amphetamines and marijuana. Reportedly, her boyfriend did give her 4 Tylenol pills earlier today for concerns of abdominal pain. She was observed in the ER for several hours and remained somnolent. She therefore is admitted to hospitalist service for observation and further monitoring. - Time Spent with Patient Total time spent providing and/or coordinating discharge services: - Discharge Medications Prescriptions: No Action Ranitidine HCl [Acid Topline Beading Machine Tender] 150 mg PO HS Triamterene/HCTZ 37.5/25mg [Dyazide] 1 each PO QAM Aspirin 81 mg PO DAILY #30 tab.chew Cyanocobalamin (B-12) [Vitamin B12] 1,000 mcg PO DAILY #30 tablet Ferrous Sulfate [Iron] 325 mg PO DAILY Home Medications: Ranitidine HCl [Acid Topline Beading Machine Tender] 150 mg PO HS 12/14/18 [History] Triamterene/HCTZ 37.5/25mg [Dyazide] 1 each PO QAM 12/14/18 [History] Aspirin 81 mg PO DAILY #30 tab.chew 12/15/18 [Rx] Cyanocobalamin (B-12) [Vitamin B12] 1,000 mcg PO DAILY #30 tablet 12/15/18 [Rx] Ferrous Sulfate [Iron] 325 mg PO DAILY 01/16/19 [History] Allergies/Adverse Reactions: Allergy/AdvReac Type Severity Reaction Status Date / Time No Known Allergies Allergy Verified 01/16/19 16:29 Date of admission: 01/16/19 02:53 Primary care physician: PCP NONE - Constitutional Vitals: Temp Pulse Resp BP Pulse Ox 97.9 F 79 17 149/84 100 01/17/19 14:45 01/17/19 14:45 01/17/19 14:45 01/17/19 14:45 01/17/19 14:45 General appearance: Present: A&O X 0, no acute distress Exam: . - Head Head exam: Present: atraumatic, normocephalic - Eye Eye exam: Present: PERRL, conjuntiva pink, sclera anicteric Pupils: Present: PERRL - Neck Neck exam general surgery: Present: supple, trachea midline. Absent: lymphadenopathy - Respiratory Respiratory exam: Present: CTAB. Absent: accessory muscle use, rales, rhonchi, wheezes - Cardiovascular Cardiovascular exam: Present: RRR, +S1, +S2. Absent: diastolic murmur, gallop, rubs, systolic murmur - GI/Abdominal GI/Abdominal exam: Present: normal bowel sounds, soft, no peritoneal signs. Absent: distended, tenderness - Extremities Exam Extremities exam: Present: warm, radial pulses palpable and symmetrical. Absent: calf tenderness, cyanotic, pedal edema - Neurological Exam Neurological exam: Present: CN II-XII intact, oriented X3, no focal deficits. Absent: pronater drift, facial droop, speech deficit - Skin Skin exam: Present: dry, intact - Patient Status Disposition: Home, Self-Care Condition: Good Overall status at discharge: patient is back to baseline - Discharge Instructions Follow Up With: NONE,PCP [Primary Care Provider] - Forms: ED Satisfaction Letter - Diet and Activity Activity: as per physical therapy Diet: advance to your usual diet, regular diet
--- NOTE | 2019-01-17 20:17 | Electrocardiograph Report ---
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
== END 2019-01-17 20:05 | disposition home or self-care (01) ==
LOC: 3ANU 20:31 → EMEROOARM 20:31 → 3ANU 01-16 03:33
PROVIDERS: ADMIT Internal Medicine; ATTEND Internal Medicine